=== PATIENT | female | born 1940 | race Caucasian/White ===

== ENCOUNTER → 2018-08-06 | Outpatient (CLI) | payer MEDICARE ==
[~2018-08-06] MED LIST: ALEN70TA47 PO; ASPI-555 PO; CEPH500B PO; CLOP75TA32 PO; FURO40TA5 PO; GLIM2TAB3 PO; LOSA50TA25 PO; METF-446 PO; METO-408 PO; MONT10TA24 PO; POTA10TA14 PO; SIMV40TA5 PO
== END | disposition home or self-care (01) ==
LOC: SHCH 15:35
PROVIDERS: ATTEND Internal Medicine Cardiovascular Disease
DX: I08.0 Rheumatic disorders of both mitral and aortic valves (principal); I25.10 Atherosclerotic heart disease of native coronary artery without angina pectoris
CPT/HCPCS: 93306

== ENCOUNTER → 2018-09-24 | Outpatient (CLI) | payer MEDICARE | END | disposition home or self-care (01) | LOC: RAH 12:19 | PROVIDERS: ATTEND Internal Medicine Cardiovascular Disease | DX: G31.9 Degenerative disease of nervous system, unspecified (principal); F02.80 Dementia in other diseases classified elsewhere, unspecified severity, without behavioral disturbance, psychotic disturbance, mood disturbance, and anxiety | CPT/HCPCS: 70551 ==

== ENCOUNTER 2018-11-30 01:24 | Emergency (ER) | payer MEDICARE ==
[~2018-11-30 01:24] MED LIST changes: +ALEN70TA10 PO; -ALEN70TA47 PO; -LOSA50TA25 PO; +LOSA50TA64 PO
[2018-11-30 02:12] LABS: BASOPHILS % (AUTO) 0.4 % (0.0-5.0); EOSINOPHILS % (AUTO) 1.2 % (0.0-8.0); HEMATOCRIT 39.1 % (36-48); LYMPHOCYTES % (AUTO) 12.5 % (21.0-51.0); MEAN CORPUSCULAR HEMOGLOBIN 33.6 pg (27.0-33.0); MEAN CORPUSCULAR HGB CONC 33.8 g/dL (32.0-36.0); MEAN CORPUSCULAR VOLUME 99.5 fL (79-99); NEUTROPHILS % (AUTO) 78.9 % (40.0-77.0); PLATELET COUNT (AUTO) 226 K/uL (130-400); RED BLOOD CELL COUNT(AUTO) 3.93 MIL/uL (4.00-5.50); RED CELL DISTRIBUTION WIDTH 13.7 % (11.0-15.5)
[2018-11-30] MEDS ORDERED: MORPHINE SULFATE 2 MG/ML 1ML SYG ONE (02:18)
[2018-11-30] MEDS ORDERED: ONDANSETRON HCL 4 MG/2 ML VIAL ONE (02:18)
[2018-11-30 02:24] LABS: CREATININE 0.9 mg/dL (0.5-1.5); POTASSIUM 4.3 mmol/L (3.5-5.1)
[2018-11-30 02:26] LABS: INR 0.95 (0.85-1.15); PARTIAL THROMBOPLASTIN TIME 22.9 SEC (26.3-35.5)
[2018-11-30 02:29] LABS: ALBUMIN 3.6 g/dL (3.5-5.0); BILIRUBIN,TOTAL 0.6 mg/dL (0.2-1.0); TOTAL PROTEIN, SERUM 7.2 g/dL (6.0-8.3)
[2018-11-30] MEDS ORDERED: HYDROCODONE/ACETAMINOPHEN 5/325 MG TAB ONE (04:20)
== END 2018-11-30 04:59 | disposition home or self-care (01) ==
LOC: EDH 01:24
DX: S20.219A Contusion of unspecified front wall of thorax, initial encounter (principal); S80.01XA Contusion of right knee, initial encounter; S29.011A Strain of muscle and tendon of front wall of thorax, initial encounter; I10 Essential (primary) hypertension; E11.9 Type 2 diabetes mellitus without complications; E78.5 Hyperlipidemia, unspecified; Z85.3 Personal history of malignant neoplasm of breast; Z90.49 Acquired absence of other specified parts of digestive tract; Z90.710 Acquired absence of both cervix and uterus; Z90.11 Acquired absence of right breast and nipple; Z87.891 Personal history of nicotine dependence; W18.39XA Other fall on same level, initial encounter; Y93.01 Activity, walking, marching and hiking; Y92.89 Other specified places as the place of occurrence of the external cause; Y99.8 Other external cause status
CPT/HCPCS: 36415; 70450; 71101; 73562; 80053; 83690; 84484; 85025; 85610; 85730; 93005; 96374; 96375; 99284; J2405

== ENCOUNTER → 2019-05-04 | Outpatient (CLI) | payer MEDICARE ==
[~2019-05-04] MED LIST changes: +ALBUTEROL; -ASPI-555 PO; +BREO; -CEPH500B PO; +CYAN250014 PO; +FOLI1TAB15 PO; +FURO40TA7 PO; +INSU100V12 SQ; -METO-408 PO; +METO25TA6 PO; -POTA10TA14 PO; +POTA20PA32 PO; +[UNRECOGNIZED DRUG - OTHER]
== END | disposition home or self-care (01) ==
LOC: SHCH 09:00
PROVIDERS: ATTEND Internal Medicine Cardiovascular Disease
DX: I08.0 Rheumatic disorders of both mitral and aortic valves (principal)
CPT/HCPCS: 93306

== ENCOUNTER 2019-05-12 07:02 | Day surgery (SDC) | payer MEDICARE ==
[~2019-05-12] VITALS: Ht 152.4 cm; Wt 89.8 kg
[~2019-05-12 07:02] MED LIST changes: -ALBUTEROL; -BREO; -FURO40TA7 PO; -LOSA50TA64 PO; +SODIUM CHLORIDE 0.9% 1000ML 1,000 ML IV ONE; -[UNRECOGNIZED DRUG - OTHER]
[2019-05-12] MEDS ORDERED: [UNRECOGNIZED DRUG - OTHER] (08:04)
[2019-05-12] MEDS ORDERED: ALBUTEROL (08:04)
[2019-05-12] MEDS ORDERED: BREO (08:04)
[2019-05-12 08:07] VITALS: BP 153/78
[2019-05-12] MEDS ORDERED: PROPOFOL 10 MG/ML 20ML VIAL IV ONE (09:02)
[2019-05-12 09:38] VITALS: BP 134/61
[2019-05-12 09:44] VITALS: BP 134/62
[2019-05-12 09:49] VITALS: BP 146/56
[2019-05-12 09:54] VITALS: BP 122/67
== END 2019-05-12 10:05 | disposition home or self-care (01) ==
LOC: ENDO 07:02 → DAH 07:02 → ENDO 10:05
PROVIDERS: ATTEND Internal Medicine
DX: Z12.11 Encounter for screening for malignant neoplasm of colon (principal); D12.3 Benign neoplasm of transverse colon; D12.4 Benign neoplasm of descending colon; D12.2 Benign neoplasm of ascending colon; D12.5 Benign neoplasm of sigmoid colon; K64.0 First degree hemorrhoids; K57.30 Diverticulosis of large intestine without perforation or abscess without bleeding; I25.10 Atherosclerotic heart disease of native coronary artery without angina pectoris; E11.9 Type 2 diabetes mellitus without complications; I10 Essential (primary) hypertension; E66.9 Obesity, unspecified; Z68.38 Body mass index [BMI] 38.0-38.9, adult; E78.5 Hyperlipidemia, unspecified; M81.0 Age-related osteoporosis without current pathological fracture; J44.9 Chronic obstructive pulmonary disease, unspecified; Z86.010 Personal history of colon polyps; Z87.891 Personal history of nicotine dependence; Z79.84 Long term (current) use of oral hypoglycemic drugs; Z79.899 Other long term (current) drug therapy; Z85.3 Personal history of malignant neoplasm of breast; Z90.710 Acquired absence of both cervix and uterus; Z98.890 Other specified postprocedural states; Z98.49 Cataract extraction status, unspecified eye; Z90.49 Acquired absence of other specified parts of digestive tract; Z72.89 Other problems related to lifestyle; Z79.4 Long term (current) use of insulin; Z83.3 Family history of diabetes mellitus; Z80.0 Family history of malignant neoplasm of digestive organs; Z82.49 Family history of ischemic heart disease and other diseases of the circulatory system
CPT/HCPCS: 45380; 45385; 82948 ×2; 88305; A4606; J2704; J7030

== ENCOUNTER 2019-06-17 07:35 | Day surgery (SDC) | payer MEDICARE ==
[2019-06-15 16:51] LABS: EOSINOPHILS % (AUTO) 2.8 % (0.0-8.0); HEMATOCRIT 35.6 % (36-48); MEAN CORPUSCULAR HEMOGLOBIN 29.2 pg (27.0-33.0); MEAN CORPUSCULAR VOLUME 88.4 fL (79-99); MONOCYTES % (AUTO) 10.2 % (3.0-13.0); PLATELET COUNT (AUTO) 274 K/uL (130-400); RED BLOOD CELL COUNT(AUTO) 4.03 MIL/uL (4.00-5.50); RED CELL DISTRIBUTION WIDTH 18.5 % (11.0-15.5); WHITE BLOOD COUNT (AUTO) 8.5 K/uL (4.8-10.8)
[2019-06-15 16:52] LABS: APPEARANCE,URINE Clear (CLEAR); BILIRUBIN,URINE Negative (NEGATIVE); COLOR,URINE Yellow (YELLOW); GLUCOSE, URINE (UA) Negative (NEGATIVE); KETONES,URINE Negative (NEGATIVE); LEUKOCYTE ESTERASE ,URINE Small (NEGATIVE); NITRATE,URINE Negative (NEGATIVE); OCCULT BLOOD,URINE Negative (NEGATIVE); PROTEIN,URINE Negative (NEGATIVE); UROBILINOGEN,URINE 0.2 mg/dL (0.2-1.0)
[2019-06-15 17:01] LABS: CREATININE 0.9 mg/dL (0.5-1.5); POTASSIUM 4.4 mmol/L (3.5-5.1)
[2019-06-15 17:22] VITALS: BP 140/67
[2019-06-15 17:34] LABS: BACTERIA,URINE Rare /HPF (None Seen); RBC,URINE 0-1 /HPF (0-1); SQUAMOUS EPITHELIAL CELL,UR Few /HPF (0-2)
[2019-06-15 17:49] LABS: INR 0.93 (0.85-1.15); PARTIAL THROMBOPLASTIN TIME 23.4 SEC (26.3-35.5); PROTHROMBIN TIME 9.8 SEC (9.6-11.6)
[~2019-06-17] VITALS: Ht 152.4 cm; Wt 95.7 kg
[2019-06-17] VITALS (10 sets, daily range): BP systolic 129–160; BP diastolic 56–81
[~2019-06-17 07:35] MED LIST changes: +CYAN-52 PO; -CYAN250014 PO; +FOLI0.4T2 PO; -FOLI1TAB15 PO; +POTA-79 PO; -POTA20PA32 PO; -SODIUM CHLORIDE 0.9% 1000ML 1,000 ML IV ONE
[2019-06-17] MEDS ORDERED: SODIUM CHLORIDE 0.9% 1000ML 1,000 ML IV ONE ×2 (07:40→08:08)
[2019-06-17] MEDS ORDERED: BREO IH (08:45)
[2019-06-17] MEDS ORDERED: ALBU18HF7 IH (08:45)
[2019-06-17] MEDS ORDERED: NITROGLYCERIN 5 MG/ML 10 ML VIAL IV ONE (09:48)
[2019-06-17] MEDS ORDERED: IOHEXOL-350 50ML VIAL IV ONE (09:48)
[2019-06-17] MEDS ORDERED: LIDOCAINE HCL 2% 20ML ONE ×2 (09:48→11:16)
[2019-06-17] MEDS ORDERED: IOHEXOL 350 MG/ML 100ML INFUS..BTL IV ONE ×2 (09:48)
[2019-06-17] MEDS ORDERED: MIDAZOLAM HCL 1 MG/ML 2ML VIAL ONE (10:59)
[2019-06-17] MEDS ORDERED: BIVALIRUDIN 250 MG/VIAL IV ONE (11:52)
[2019-06-17] MEDS ORDERED: SODIUM CHLORIDE 0.9% 10 ML VIAL IVP SCH (12:30)
[2019-06-17] MEDS ORDERED: DEXTROSE 50%-WATER 50 ML DISP.SYRIN IV PRN (12:30)
[2019-06-17] MEDS ORDERED: GLUCAGON 1MG KIT 1 MG ML IM PRN (12:30)
--- NOTE | 2019-06-17 14:10 | NUR ---
NOTE SCHEDULED PT FOR CT ABD/PELVIS WITH TAVR PROTOCOL ON FRIDAY PER DR. ROTH ORDERS. SPOKE TO HOLLY WITH SCHEDULING, HOLLY ALSO GAVE ME PT'S PRE PROCEDURE INSTRUCTIONS, INSTRUCTIONS WILL BE GIVEN TO PT UPON DISCHARGE.
--- NOTE | 2019-06-17 14:20 | NUR ---
REPORT REPORT GIVEN TO COLBY ROJAS RN. PT SUPINE ON BED, NOT IN ANY APPARENT DISTRESS, CATH SITE RIGHT GROIN REMAINS SOFT, NO OOZING NO HEMATOMA NOTED, DRESSING REMAINS DRY AND INTACT. SON AT BEDSIDE.
[2019-06-17] MEDS ORDERED: INSULIN HUMULIN R 100 UNIT/ML 3ML SQ SCH (16:30)
--- NOTE | 2019-06-17 16:55 | NUR ---
dc dc instructions given to pt son , instructed to hold metformin for 48 hrs. to f/u with dr. weaver 06-21-[address] scan abdomen on friday after DR. weaver appointment to maintain npo and come to hospital right after to do ct scan even if she is late for her schedule ct appointment, pt / son verbalized understanding, instructed to f/u with dr. sunshine trinh also. piv removed. right groin site with dstat dressing dry and intact, no bleeding or hematoma to site
--- NOTE | 2019-06-17 17:00 | NUR ---
dc pt dc home via [facility], no distress noted, denied any pain or discomforts. accompanied by son
== END 2019-06-17 17:00 | disposition home or self-care (01) ==
LOC: DAH 07:35
PROVIDERS: ATTEND Internal Medicine Cardiovascular Disease
DX: I35.0 Nonrheumatic aortic (valve) stenosis (principal); I25.10 Atherosclerotic heart disease of native coronary artery without angina pectoris; I50.32 Chronic diastolic (congestive) heart failure; J44.9 Chronic obstructive pulmonary disease, unspecified; I11.0 Hypertensive heart disease with heart failure; E11.9 Type 2 diabetes mellitus without complications; E66.01 Morbid (severe) obesity due to excess calories; Z79.84 Long term (current) use of oral hypoglycemic drugs; Z79.899 Other long term (current) drug therapy; Z79.2 Long term (current) use of antibiotics; Z95.818 Presence of other cardiac implants and grafts; Z98.890 Other specified postprocedural states; Z90.49 Acquired absence of other specified parts of digestive tract; Z98.51 Tubal ligation status; Z98.49 Cataract extraction status, unspecified eye; Z79.4 Long term (current) use of insulin; Z87.891 Personal history of nicotine dependence; Z72.89 Other problems related to lifestyle; Z95.5 Presence of coronary angioplasty implant and graft; Z68.41 Body mass index [BMI] 40.0-44.9, adult; Z83.3 Family history of diabetes mellitus; Z82.49 Family history of ischemic heart disease and other diseases of the circulatory system
CPT/HCPCS: 36415; 71045; 80048; 81001; 82948 ×3; 85025; 85610; 85730; 93005; 93460; A4215; A4216; A4221; A4222; A4223; A4606; C1760; C1893; C1894 ×2; J1644; J2250; J3490 ×3; J7030 ×2; Q9965; Q9967 ×2; 99156; 99157; J0583

== ENCOUNTER → 2019-06-21 | Outpatient (CLI) | payer MEDICARE ==
[~2019-06-21] MED LIST changes: +ALBU18HF7 IH; +BREO IH; -GLIM2TAB3 PO; +GLIM2TAB4 PO; +IOHEXOL 350 MG/ML 100ML INFUS..BTL IV ONE; +SIMV-46 PO; -SIMV40TA5 PO
== END | disposition home or self-care (01) ==
LOC: RAH 10:49
PROVIDERS: ATTEND Internal Medicine Cardiovascular Disease
DX: I70.0 Atherosclerosis of aorta (principal); I34.0 Nonrheumatic mitral (valve) insufficiency; I10 Essential (primary) hypertension
CPT/HCPCS: 74174; 75574; Q9967

== ENCOUNTER → 2019-08-14 | Outpatient (CLI) | payer MEDICARE ==
[~2019-08-14] MED LIST changes: +GLIM2TAB30 PO; -GLIM2TAB4 PO; -IOHEXOL 350 MG/ML 100ML INFUS..BTL IV ONE
== END | disposition home or self-care (01) ==
LOC: SHCH 12:38
PROVIDERS: ATTEND Internal Medicine Cardiovascular Disease
DX: I35.0 Nonrheumatic aortic (valve) stenosis (principal)
CPT/HCPCS: 93306

== ENCOUNTER 2022-12-11 12:54 | Emergency (ER) | payer MEDICARE, OTHER ==
[~2022-12-11] VITALS: Ht 152.4 cm; Wt 60.8 kg
[~2022-12-11 12:54] MED LIST changes: -ALEN70TA10 PO; +ALEN70TA80 PO; -FOLI0.4T2 PO; +FOLI0.4T6 PO; +MONT-39 PO; -MONT10TA24 PO
[2022-12-11 15:29] LABS: BASOPHILS % (AUTO) 0.4 % (0.0-5.0); HEMATOCRIT 37.7 % (36-48); LYMPHOCYTES % (AUTO) 18.3 % (21.0-51.0); MEAN CORPUSCULAR HGB CONC 32.9 g/dL (32.0-36.0); MEAN CORPUSCULAR VOLUME 94.3 fL (79-99); MONOCYTES % (AUTO) 9.2 % (3.0-13.0); NEUTROPHILS % (AUTO) 69.7 % (40.0-77.0); PLATELET COUNT (AUTO) 143 K/uL (130-400); RED CELL DISTRIBUTION WIDTH 14.1 % (11.0-15.5); WHITE BLOOD COUNT (AUTO) 5.6 K/uL (4.8-10.8)
[2022-12-11 15:52] LABS: INR 1.02 (0.85-1.15); PROTHROMBIN TIME 11.1 SEC (9.6-11.6)
[2022-12-11 15:53] LABS: PARTIAL THROMBOPLASTIN TIME 25.8 SEC (26.3-35.5)
[2022-12-11 15:57] LABS: ALBUMIN 3.4 g/dL (3.5-5.0); CREATININE 0.6 mg/dL (0.5-1.5); TOTAL PROTEIN, SERUM 6.6 g/dL (6.0-8.3)
[2022-12-11 16:01] LABS: POTASSIUM 2.7 mmol/L (3.5-5.1)
[2022-12-11 16:14] LABS: APPEARANCE,URINE CLOUDY (CLEAR); BILIRUBIN,URINE NEGATIVE (NEGATIVE); COLOR,URINE YELLOW (YELLOW); GLUCOSE, URINE (UA) NEGATIVE (NEGATIVE); KETONES,URINE 10 mg/dL (NEGATIVE); LEUKOCYTE ESTERASE ,URINE 500 Leu/uL (NEGATIVE); NITRATE,URINE 2+ (NEGATIVE); OCCULT BLOOD,URINE NEGATIVE (NEGATIVE); PH,URINE 5.5 (5.0-8.0); PROTEIN,URINE 30 mg/dL (NEGATIVE); UROBILINOGEN,URINE 3 mg/dL (0.2-1.0)
[2022-12-11 16:18] LABS: BACTERIA,URINE MOD /HPF (None Seen); MUCUS,URINE MOD LPF (None Seen); SQUAMOUS EPITHELIAL CELL,UR RARE /HPF (0-2); WBC,URINE 51-100 /HPF (0-1)
[2022-12-11 17:29] LABS: MAGNESIUM 1.4 mg/dL (1.80-2.40)
[2022-12-11] MEDS ORDERED: POTASSIUM BICARB/CIT AC 25 MEQ TABLET.EFF PO ONE ×3 (17:30→22:30)
[2022-12-11] MEDS ORDERED: CEFTRIAXONE 1G VIAL IVP ONE (17:30)
[2022-12-11] MEDS ORDERED: MAGNESIUM 2GM PREMIX 50ML 50 ML IV ONE (18:00)
[2022-12-11] MEDS ORDERED: POTASSIUM CHLORIDE 10MEQ/100ML 10 MEQ/100 ML ML IV ONE (19:30)
[2022-12-11] MEDS ORDERED: POTA-187 PO (22:07)
[2022-12-11 22:22] VITALS: BP 147/62
== END 2022-12-11 22:22 | disposition home or self-care (01) ==
LOC: EDH 12:54
DX: E87.6 Hypokalemia (principal); E83.42 Hypomagnesemia; F02.80 Dementia in other diseases classified elsewhere, unspecified severity, without behavioral disturbance, psychotic disturbance, mood disturbance, and anxiety; I50.9 Heart failure, unspecified; E11.9 Type 2 diabetes mellitus without complications; E78.00 Pure hypercholesterolemia, unspecified; G30.9 Alzheimer's disease, unspecified; Z79.4 Long term (current) use of insulin; Z79.84 Long term (current) use of oral hypoglycemic drugs; Z79.899 Other long term (current) drug therapy; Z85.3 Personal history of malignant neoplasm of breast; Z20.822 Contact with and (suspected) exposure to COVID-19; W18.39XA Other fall on same level, initial encounter; Y93.89 Activity, other specified; Y92.89 Other specified places as the place of occurrence of the external cause; Y99.8 Other external cause status
CPT/HCPCS: 99285; 96365; 70450; 96367; 87635; 96375; 83735 ×3; 84132 ×2; 80053; 85025; 85610; 85730; 87040 ×2; 87077 ×2; 87088; 87186 ×2; 83605; 81001; 36415; C9803; J3475; J0696